=== PATIENT | male | born 1965 | race Caucasian/White ===

== ENCOUNTER 2016-10-21 09:45 | Emergency (ER) | payer OTHER ==
[2016-10-21 09:56] VITALS: TEMP 98.6; BMI 33.7
[2016-10-21] MEDS ORDERED: KETOROLAC TROMETHAMINE 60 MG/2 ML VIAL ONE (10:30)
--- NOTE | 2016-10-21 10:47 | PDOC ---
History of Present Illness - General Chief Complaint: Back Pain Stated Complaint: LEG PAIN Time Seen by Provider: 10/21/16 09:55 History Source: Patient Exam Limitations: No Limitations - History of Present Illness Initial Comments: CHIEF COMPLAINT: 51 y/o afebrile male with PMH migraines, restless leg syndrome , heroin dependence (on daily methadone - 170 dose), depression, stiffness in lower extremities c/o low back pain and leg weakness since yesterday. HISTORY OF PRESENT ILLNESS: The patient states yesterday he tried to get off of the couch but couldn't move his legs. He denies trauma or fall. He states he also has low back pain. He denies f/c, n/v/d, neck pain, CP, SOB, abd pain, saddle anesthesia, bowel/bladder incontinence, numbness/tingling in lower extremities. Vital signs on arrival are within normal limits. REVIEW OF SYSTEMS: GENERAL/CONSTITUTIONAL: No fever/chills. No weakness. No weight change. HEAD, EYES, EARS, NOSE AND THROAT: No change in vision. No ear pain or discharge. No sore throat. CARDIOVASCULAR: No chest pain or shortness of breath. RESPIRATORY: No cough, wheezing, or hemoptysis. GASTROINTESTINAL: No abd pain, nausea, vomiting, diarrhea. GENITOURINARY: No dysuria, frequency, or change in urination. MUSCULOSKELETAL: +low back pain and b/l leg weakness. No neck pain. SKIN: No rash or easy bruising. NEUROLOGIC: No headache, vertigo, loss of consciousness, or loss of sensation. PHYSICAL EXAM: GENERAL: The patient is awake, alert, and fully oriented, in no acute distress. He appears uncomfortable and is using his arms to move himself up in the bed. HEAD: Normal with no signs of trauma. ENT: Pupils equal, round and reactive to light, extraocular movements intact, sclera anicteric, conjunctiva clear. Neck supple. LUNGS: Clear to auscultation bilaterally. Normal excursion. No respiratory distress or use of accessory muscles. CV: RRR, S1/S2, no MRG. Cap refill < 2 sec. ABDOMEN: Soft, non-distended, non-tenormal range of motion, no edema.gage even to deep palpation, no hepatomegaly or splenomegaly, no masses. BACK: TTP of midline lumbar spine at region of L4/L5. No step offs. EXTREMITIES: No active ROM of LEs from patient. No edema. 2+ dorsalis pedis pulses in b/l LEs. NEUROLOGICAL: Normal speech. Gait not assessed in the ER. CN II-XII grossly intact. +babinski reflex b/l LEs. No patellar reflex b/l LEs. PSYCH: Normal mood, normal affect. SKIN: Warm, dry, normal turgor, no rashes or lesions noted. Past History - Past Medical History Allergies/Adverse Reactions: Allergies Allergy/AdvReac Type Severity Reaction Status Date / Time penicillin G Allergy Intermediate Hives Verified 10/21/16 09:53 Home Medications: Ambulatory Orders Hydrochlorothiazide [Hctz -] 25 mg PO DAILY #0 tablet 06/30/13 Mirtazapine [Remeron -] 15 mg PO HS #30 tablet 04/27/16 Sertraline HCl [Zoloft -] 25 mg PO DAILY #30 tablet 04/27/16 Anemia: No Asthma: No Cancer: No Cardiac Disorders: No CVA: No COPD: No CHF: No Dementia: No Diabetes: Yes GI Disorders: No Disorders: No HTN: Yes Hypercholesterolemia: No Kidney Stones: No Liver Disease: No Suicide Attempt (Hx): No Seizures: No Thyroid Disease: No - Surgical History Abdominal Surgery: No Appendectomy: No Cardiac Surgery: No Cholecystectomy: No Lung Surgery: No Neurologic Surgery: No Orthopedic Surgery: No - Reproductive History Testicular Surgery: No - Psycho/Social/Smoking Cessation Hx Anxiety: No Suicidal Ideation: No Smoking History: Current every day smoker Have you smoked in the past 12 months: Yes Number of Cigarettes Smoked Daily: 4 Information on smoking cessation initiated: No 'Breaking Loose' booklet given: 04/17/16 Hx Alcohol Use: No Drug/Substance Use Hx: No (past on methadone) Substance Use Type: None Hx Substance Use Treatment: Yes (No prior inpt detox but one prior inpt rehab @ [facility] in Jun 2013) *Physical Exam - Vital Signs Last Vital Signs Temp Pulse Resp BP Pulse Ox 98.6 F 64 20 154/88 97 10/21/16 09:54 10/21/16 09:54 10/21/16 09:54 10/21/16 09:54 10/21/16 09:54 ED Treatment Course - LABORATORY CBC & Chemistry Diagram: 10/21/16 10:30 10/21/16 10:30 Medical Decision Making - Medical Decision Making A/P: 51 y/o afebrile male with LE weakness and LBP since yesterday. I spoke with the patient's Neurologist, Dr. Kennedy, who informed me that he was in his office 2 days ago and was evaluated. He states the patient always has stiff LEs in the morning and is narcotic seeking. He also informs me that the patient had an MRI of the brain and the lumbar spine on 09/29. The MRI of the brain was normal. The MRI of the lumbar spine showed minimal disc degeneration of L4/L5. He instructed me to absolutely not give the patient narcotic pain medication. He also does not think the patient needs to be scanned and informs me that the patient is notoriously non complaint with his RLS and migraine headache medication. Will do basic labs and give IM Toradol and benadryl The patient missed his methadone dose this morning and it was confirmed he takes 170/day. Patient was given his methadone in the ER. The patient is now able to move his legs although he still states it's difficult. He states his is at home to help him ambulate if needed. I informed him all tests are normal and that he recently had head and low back scans as per Dr. Kennedy so we will not be repeating them. He does inform me that Dr. Kennedy changed one of his meds and he didn't take it for 2 days. He states he just started today. Will discharge to home with instructions to f/u with Dr. Kennedy if symptoms do not improve. Instructed him to return to the ER with any worsening or concerning symptoms. The patient verbalizes understanding of all instructions, has no further questions and is awaiting discharge. *DC/Admit/Observation/Transfer Diagnosis at time of Disposition: Leg weakness, bilateral Low back pain Qualifiers: Chronicity: acute Back pain laterality: bilateral Sciatica presence: without sciatica Qualified Code(s): M54.5 - Low back pain - Discharge Dispostion Disposition: HOME Condition at time of disposition: Improved - Referrals Referrals: Josh Lisa MD [Primary Care Provider] - Marvel Kennedy MD [Staff Physician] - Call tomorrow - Patient Instructions Printed Discharge Instructions: DI for Low Back Pain, DI for Muscle Weakness Additional Instructions: Discharge Instructions: -Take all of your medications as prescribed -Continue taking your methadone daily -Follow up with Dr. Kennedy tomorrow -Return to the ER with any worsening or concerning symptoms
[2016-10-21] MEDS ORDERED: METHADONE HCL 10 MG TABLET PO ONE (10:55)
[2016-10-21] MEDS ORDERED: KETOROLAC TROMETHAMINE 60 MG/2 ML VIAL IM ONE (10:59)
[2016-10-21 11:03] LABS: BASOPHIL 1.1 % (0-2.0); EOSINOPHIL 2.6 % (0-4.5); MCHC 33.1 g/dl (32.0-35.9); MEAN CELL VOLUME 93.7 fl (80-96); MEAN PLT VOLUME 8.2 fl (7.5-11.1); NEUTROPHILS 55.9 % (42.8-82.8); PLATELET COUNT 242 K/MM3 (134-434); RDW 14.2 % (11.9-15.9); WHITE BLOOD COUNT 7.3 K/mm3 (4.0-10.0)
[2016-10-21 11:10] LABS: ALBUMIN 3.8 g/dl (3.4-5.0); ANION GAP 7 (8-16); BILIRUBIN,TOTAL 0.5 mg/dL (0.2-1.0); CALCIUM 8.5 mg/dL (8.5-10.1); CO2 31 mmol/L (21-32); CREATININE 1.1 mg/dL (0.7-1.3); GLUCOSE,RANDOM 107 mg/dL (74-106); SGOT/AST 26 U/L (15-37); SGPT/ALT 46 U/L (12-78); TOT PROT 7.1 g/dl (6.4-8.2)
[2016-10-21 11:12] LABS: ALK PHOS 114 U/L (45-117); TROPONIN I < 0.02 ng/ml (0.00-0.05)
[2016-10-21] MEDS ORDERED: METHADONE HCL 10 MG TABLET ONE (11:16)
[2016-10-21] MEDS ORDERED: METHADONE HCL 40 MG DISPERSABLE TABLET ONE (11:17)
[2016-10-21 12:33] VITALS: BP 144/78; PULSE 78
== END 2016-10-21 14:02 | disposition home or self-care (01) ==
LOC: JER 09:45
PROC: 3E0233Z Introduction of Anti-inflammatory into Muscle, Percutaneous Approach (ICD-10-PCS; principal; 2016-10-21)
PROC: 3E023GC Introduction of Other Therapeutic Substance into Muscle, Percutaneous Approach (ICD-10-PCS; 2016-10-21)
DX: M62.81 Muscle weakness (generalized) (principal); F11.20 Opioid dependence, uncomplicated; I10 Essential (primary) hypertension; E11.9 Type 2 diabetes mellitus without complications; F32.9 Major depressive disorder, single episode, unspecified; F17.210 Nicotine dependence, cigarettes, uncomplicated
CPT/HCPCS: 36415; 80053; 82550; 82553; 84484; 85025; 99282-25

== ENCOUNTER 2018-02-18 12:59 | Emergency (ER) | payer OTHER ==
[2018-02-18 13:06] VITALS: BP 140/86; PULSE 71; TEMP 98.3; BMI 31.1
--- NOTE | 2018-02-18 13:17 | PDOC ---
History of Present Illness - General Chief Complaint: Foreign Body (FB) Stated Complaint: EYE PROBLEM Time Seen by Provider: 02/18/18 13:05 History Source: Patient Exam Limitations: No Limitations - History of Present Illness Initial Comments: CHIEF COMPLAINT: 52 y/o afebrile male with PMH HTN and IDDM c/o foreign body in right eye this morning. HISTORY OF PRESENT ILLNESS: The patient states he woke up this morning with a foreign body sensation in his right eye. He went to [facility] who flushed it and then suggested he go to a local eye doctor's office. He states he went to the eye doctor's office but they were closed. He states his eye still hurts so he is here. He does wear glasses but no contacts. He denies trauma to the eye. Vital signs on arrival are within normal limits. REVIEW OF SYSTEMS: GENERAL/CONSTITUTIONAL: No fever/chills. No weakness. No weight change. HEAD, EYES, EARS, NOSE AND THROAT: +foreign body sensation of right eye. No ear pain or discharge. No sore throat. NEUROLOGIC: No headache, vertigo, loss of consciousness, or loss of sensation. PHYSICAL EXAM: GENERAL: The patient is awake, alert, and fully oriented, in no acute distress. HEAD: Normal with no signs of trauma. ENT: Right conjunctiva injected. Fluorescein exam of right eye reveals a small abrasion at 7 o'clock and another at 1 o'clock of the iris. NEUROLOGICAL: Normal speech, normal gait. CN II-XII grossly intact. SKIN: Warm, dry, normal turgor, no rashes or lesions noted. Past History - Past Medical History Allergies/Adverse Reactions: Allergies Allergy/AdvReac Type Severity Reaction Status Date / Time penicillin G Allergy Intermediate Hives Verified 02/18/18 13:04 Home Medications: Ambulatory Orders Hydrochlorothiazide [Hctz -] 25 mg PO DAILY #0 tablet 06/30/13 Lisinopril [Zestril] 20 mg PO DAILY 06/15/17 Metoprolol Tartrate [Lopressor -] 50 mg PO DAILY #30 tablet MDD 1 08/10/17 Mirtazapine [Remeron -] 30 mg PO HS 10/13/17 Buspirone HCl [Buspar -] 10 mg PO DAILY PRN 11/11/17 Nicotine [Nicotine Patch 21 mg/24 hr] 1 each TD DAILY #30 patch.td24 12/09/17 Buprenorphine/Naloxone [Suboxone 8Mg/2Mg Sl Film -] 1 each SL BID #28 packet MDD 2 02/17/18 Anemia: No Asthma: No Cancer: No Cardiac Disorders: No CVA: No COPD: No CHF: No Dementia: No Diabetes: Yes GI Disorders: No Disorders: No HTN: Yes (on meds) Hypercholesterolemia: No Kidney Stones: No Liver Disease: No Seizures: No Thyroid Disease: No - Surgical History Abdominal Surgery: No Appendectomy: No Cardiac Surgery: No Cholecystectomy: No Lung Surgery: No Neurologic Surgery: No Orthopedic Surgery: No - Reproductive History Testicular Surgery: No - Suicide/Smoking/Psychosocial Hx Smoking History: Current every day smoker Have you smoked in the past 12 months: Yes Number of Cigarettes Smoked Daily: 4 'Breaking Loose' booklet given: 08/30/17 Hx Alcohol Use: Yes (none x 25 years) Drug/Substance Use Hx: Yes Substance Use Type: Heroin, Tranquilizers Hx Substance Use Treatment: Yes (detox, rehab) Medical Decision Making - Medical Decision Making A/P: 52 y/o male with 2 small corneal abrasions to right eye. He already had his eye flushed at [facility] and was sent to an eye doctor whose office was closed today. Called Dr. Aviles's office who states they will see him now. WIll discharge and instruct him to go there now for follow up. The patient verbalizes understanding of all instructions, has no further questions and is awaiting discharge. *DC/Admit/Observation/Transfer Diagnosis at time of Disposition: Corneal abrasion Qualifiers: Encounter type: initial encounter Laterality: right Qualified Code(s): S05.01XA - Injury of conjunctiva and corneal abrasion without foreign body, right eye, initial encounter - Discharge Dispostion Disposition: HOME Condition at time of disposition: Good - Referrals Referrals: Antonio Aviles MD [Staff Physician] - (Go to the office now [address]) - Patient Instructions Printed Discharge Instructions: DI for Corneal Abrasion Additional Instructions: Discharge Instructions: -Please go directly to Dr. Aviles's office at [address] for further evaluation -Return to the ER with any worsening or concerning symptoms - Post Discharge Activity
== END 2018-02-18 13:29 | disposition home or self-care (01) ==
LOC: JERFT 12:59
DX: S05.01XA Injury of conjunctiva and corneal abrasion without foreign body, right eye, initial encounter (principal); I10 Essential (primary) hypertension; E10.9 Type 1 diabetes mellitus without complications; Z79.4 Long term (current) use of insulin; F17.210 Nicotine dependence, cigarettes, uncomplicated; Z88.0 Allergy status to penicillin; X58.XXXA Exposure to other specified factors, initial encounter; Y93.89 Activity, other specified; Y92.89 Other specified places as the place of occurrence of the external cause; Y99.8 Other external cause status
CPT/HCPCS: 99281-25